=== PATIENT | male | born 1990 | race Caucasian/White ===

== ENCOUNTER 2024-04-26 19:55 | Inpatient (IN) | payer OTHER ==
[~2024-04-26] VITALS: Ht 165.1 cm; Wt 65.8 kg
[2024-04-26 20:19] VITALS: BP 146/90; PULSE 98; RESP 18; TEMP 98.3; O2SAT 99
[2024-04-26 21:40] VITALS: O2SAT 97
[2024-04-26 23:04] LABS: BASOPHILS # (AUTO) 0.1 K/uL (0.00-0.22); BASOPHILS % (AUTO) 1.1 % (0.0-2.0); EOSINOPHILS # (AUTO) 0.1 K/uL (0-0.4); EOSINOPHILS % (AUTO) 1.9 % (0.0-4.0); HEMATOCRIT 37.4 % (36-52); HEMOGLOBIN 12.4 g/dL (12.0-18.0); LYMPHOCYTES # (AUTO) 1.8 K/uL (2.0-11.5); LYMPHOCYTES % (AUTO) 26.7 % (20.5-51.1); MEAN CORPUSCULAR HEMOGLOBIN 29 pg (27-31); MEAN CORPUSCULAR HGB CONC 33 g/dL (33-37); MEAN CORPUSCULAR VOLUME 87.3 fL (80-94); MONOCYTES # (AUTO) 0.6 K/uL (0.8-1.0); MONOCYTES % (AUTO) 9.3 % (1.7-9.3); NEUTROPHILS # (AUTO) 4.1 K/uL (1.8-7.7); PLATELET COUNT (AUTO) 350 K/uL (140-450); RED BLOOD CELL COUNT(AUTO) 4.29 MIL/uL (4.20-6.10); RED CELL DISTRIBUTION WIDTH 13.7 % (11.6-13.7); WHITE BLOOD COUNT (AUTO) 6.8 K/uL (4.8-10.8)
[2024-04-26 23:10] VITALS: O2SAT 97
[2024-04-26] MEDS ORDERED: PIPERACILLIN/TAZOBACTAM 3.375 GM VIAL IV ONE (23:21)
[2024-04-26] MEDS: NACL 0.9% 1,000 ML IV ONE (23:22)
[2024-04-26 23:25] LABS: LACTIC ACID 0.8 mmol/L (0.4-2.0)
[2024-04-26] MEDS: PIPERACILLIN/TAZOBACTAM 3.375 GM in DEXTROSE 5% 50 ML IV ONE (23:28)
[2024-04-26 23:31] LABS: ANION GAP 12.4 (8-16); CALCIUM 8.9 mg/dL (8.5-10.1); CREATININE 0.8 mg/dL (0.6-1.3); POTASSIUM 3.4 mmol/L (3.5-5.1)
[2024-04-26 23:33] LABS: ALBUMIN 3.2 g/dL (3.4-5.0); BILIRUBIN,DIRECT 0.1 mg/dL (0.0-0.3); TOTAL BILIRUBIN 0.2 mg/dL (0.0-1.0); TOTAL PROTEIN, SERUM 7.6 g/dL (6.4-8.2)
[2024-04-27 01:53] VITALS: O2SAT 97
[2024-04-27] MEDS ORDERED: ONDANSETRON 4 MG/2 ML VIAL IVP PRN (02:05)
[2024-04-27] MEDS ORDERED: MAG SULF 2000 MG/WATER PREMIX 50 ML IV PRN (02:05)
[2024-04-27] MEDS ORDERED: KCL 20 MEQ IN 100 mL PREMIX 200 ML IV PRN (02:05)
[2024-04-27] MEDS ORDERED: VANCOMYCIN PER PHARMACY MC PRN (02:05)
[2024-04-27] MEDS ORDERED: MORPHINE SULFATE 4 MG/ML SYR IVP PRN (02:05)
[2024-04-27] MEDS ORDERED: VANCOMYCIN 1,000 MG VIAL ONE ×2 (02:58→03:02)
[2024-04-27] MEDS: VANCOMYCIN 1GM/DEXT 5% PREMIX 200 ML IV ONE (04:30)
[2024-04-27] MEDS: VANCOMYCIN 1,000 MG VIAL ONE (04:45)
[2024-04-27 07:38] VITALS: PULSE 69; RESP 18; O2SAT 94
[2024-04-27 07:58] VITALS: RESP 18
[2024-04-27 08:00] VITALS: BP 119/72; PULSE 66; RESP 18; TEMP 97.6; O2SAT 99
[2024-04-27] MEDS: MEDS-TO-BEDS MC SCH (09:00)
[2024-04-27] MEDS: POTASSIUM CHLORIDE 10 MEQ TABER PO PRN (10:09)
[2024-04-27] MEDS: VANCOMYCIN 1,000 MG in DEXTROSE 5% 250 ML IV SCH (12:04)
[2024-04-27 16:00] VITALS: BP 133/93; PULSE 96; RESP 18; TEMP 98; O2SAT 100
[2024-04-27 20:00] VITALS: BP 129/72; PULSE 84; PULSE 96; RESP 18; TEMP 97.9; O2SAT 100; O2SAT 95
[2024-04-28 04:00] VITALS: BP 114/73; PULSE 68; RESP 18; TEMP 98.1; O2SAT 98
[2024-04-28 06:44] LABS: BASOPHILS % (AUTO) 0.5 % (0.0-2.0); EOSINOPHILS # (AUTO) 0.1 K/uL (0-0.4); EOSINOPHILS % (AUTO) 3.1 % (0.0-4.0); HEMOGLOBIN 13.4 g/dL (12.0-18.0); LYMPHOCYTES # (AUTO) 1.6 K/uL (2.0-11.5); LYMPHOCYTES % (AUTO) 35.4 % (20.5-51.1); MEAN CORPUSCULAR HEMOGLOBIN 29 pg (27-31); MEAN CORPUSCULAR HGB CONC 33 g/dL (33-37); MEAN CORPUSCULAR VOLUME 88.5 fL (80-94); MONOCYTES # (AUTO) 0.5 K/uL (0.8-1.0); MONOCYTES % (AUTO) 11.4 % (1.7-9.3); NEUTROPHILS # (AUTO) 2.2 K/uL (1.8-7.7); NEUTROPHILS % (AUTO) 49.6 % (42.2-75.2); PLATELET COUNT (AUTO) 330 K/uL (140-450); RED BLOOD CELL COUNT(AUTO) 4.64 MIL/uL (4.20-6.10); RED CELL DISTRIBUTION WIDTH 13.7 % (11.6-13.7); WHITE BLOOD COUNT (AUTO) 4.4 K/uL (4.8-10.8)
[2024-04-28 07:02] LABS: MAGNESIUM 1.7 mg/dL (1.8-2.4); PHOSPHORUS 4.4 mg/dL (2.5-4.9)
[2024-04-28 07:09] LABS: ANION GAP 11.5 (8-16); CALCIUM 8.5 mg/dL (8.5-10.1); CARBON DIOXIDE 26.5 mmol/L (21-32); CREATININE 0.7 mg/dL (0.6-1.3)
[2024-04-28 08:00] VITALS: BP 106/72; PULSE 89; RESP 18; TEMP 98.6; O2SAT 97
[2024-04-28 12:00] VITALS: BP 111/77; PULSE 86; RESP 19; TEMP 98.2; O2SAT 99
[2024-04-28] MEDS: VANCOMYCIN 1.25GM PREMIX 250 ML IV SCH (13:20)
[2024-04-28 16:00] VITALS: BP 119/70; PULSE 102; RESP 18; TEMP 97.2; O2SAT 97
[2024-04-28 20:00] VITALS: BP 106/72; PULSE 100; PULSE 73; RESP 18; TEMP 98.8; O2SAT 95; O2SAT 97
[2024-04-29 04:00] VITALS: BP 121/74; PULSE 62; RESP 18; TEMP 97.8; O2SAT 95
[2024-04-29 06:28] LABS: BASOPHILS % (AUTO) 0.6 % (0.0-2.0); EOSINOPHILS # (AUTO) 0.1 K/uL (0-0.4); EOSINOPHILS % (AUTO) 2.3 % (0.0-4.0); HEMATOCRIT 39.5 % (36-52); LYMPHOCYTES % (AUTO) 36.6 % (20.5-51.1); MEAN CORPUSCULAR HEMOGLOBIN 29 pg (27-31); MEAN CORPUSCULAR HGB CONC 33 g/dL (33-37); MEAN CORPUSCULAR VOLUME 88.4 fL (80-94); MONOCYTES # (AUTO) 0.4 K/uL (0.8-1.0); MONOCYTES % (AUTO) 7.3 % (1.7-9.3); NEUTROPHILS # (AUTO) 2.9 K/uL (1.8-7.7); NEUTROPHILS % (AUTO) 53.2 % (42.2-75.2); PLATELET COUNT (AUTO) 327 K/uL (140-450); RED BLOOD CELL COUNT(AUTO) 4.47 MIL/uL (4.20-6.10); WHITE BLOOD COUNT (AUTO) 5.5 K/uL (4.8-10.8)
[2024-04-29 07:08] LABS: MAGNESIUM 2.1 mg/dL (1.8-2.4); PHOSPHORUS 4.2 mg/dL (2.5-4.9)
[2024-04-29 07:12] LABS: ANION GAP 14.6 (8-16); CALCIUM 8.5 mg/dL (8.5-10.1); CARBON DIOXIDE 23.5 mmol/L (21-32); CREATININE 0.8 mg/dL (0.6-1.3); POTASSIUM 4.1 mmol/L (3.5-5.1)
[2024-04-29 08:00] VITALS: BP 114/73; PULSE 100; PULSE 63; RESP 18; TEMP 96.6; O2SAT 96
[2024-04-29 12:00] VITALS: BP 119/72; PULSE 83; RESP 19; TEMP 97.3; O2SAT 97
[2024-04-29] MEDS: ACETAMINOPHEN 325 MG TAB PO PRN (12:58)
[2024-04-29 16:00] VITALS: BP 103/63; PULSE 97; RESP 18; TEMP 98.7; O2SAT 97
[2024-04-29 20:00] VITALS: BP 93/73; PULSE 94; RESP 18; TEMP 98.5; O2SAT 96
[2024-04-30 04:00] VITALS: BP 102/66; PULSE 94; RESP 18; TEMP 97.7; O2SAT 94
[2024-04-30 05:38] LABS: BASOPHILS # (AUTO) 0.1 K/uL (0.00-0.22); BASOPHILS % (AUTO) 0.8 % (0.0-2.0); EOSINOPHILS # (AUTO) 0.1 K/uL (0-0.4); EOSINOPHILS % (AUTO) 1.9 % (0.0-4.0); HEMATOCRIT 38.3 % (36-52); HEMOGLOBIN 12.5 g/dL (12.0-18.0); LYMPHOCYTES # (AUTO) 2.3 K/uL (2.0-11.5); LYMPHOCYTES % (AUTO) 33.8 % (20.5-51.1); MEAN CORPUSCULAR HEMOGLOBIN 29 pg (27-31); MEAN CORPUSCULAR HGB CONC 33 g/dL (33-37); MEAN CORPUSCULAR VOLUME 88.9 fL (80-94); MONOCYTES # (AUTO) 0.6 K/uL (0.8-1.0); MONOCYTES % (AUTO) 9.2 % (1.7-9.3); NEUTROPHILS # (AUTO) 3.7 K/uL (1.8-7.7); NEUTROPHILS % (AUTO) 54.3 % (42.2-75.2); PLATELET COUNT (AUTO) 326 K/uL (140-450); RED BLOOD CELL COUNT(AUTO) 4.32 MIL/uL (4.20-6.10); RED CELL DISTRIBUTION WIDTH 14.4 % (11.6-13.7); WHITE BLOOD COUNT (AUTO) 6.9 K/uL (4.8-10.8)
[2024-04-30 05:46] LABS: ANION GAP 10.1 (8-16); CALCIUM 8.3 mg/dL (8.5-10.1); CARBON DIOXIDE 28.7 mmol/L (21-32); CREATININE 0.7 mg/dL (0.6-1.3); POTASSIUM 3.8 mmol/L (3.5-5.1)
[2024-04-30 06:13] LABS: MAGNESIUM 1.7 mg/dL (1.8-2.4); PHOSPHORUS 4.2 mg/dL (2.5-4.9)
[2024-04-30 08:00] VITALS: BP 102/66; PULSE 94; RESP 18; TEMP 97.7; O2SAT 94; O2SAT 96
[2024-04-30 12:00] VITALS: BP 109/56; PULSE 85; RESP 18; TEMP 99; O2SAT 98
[2024-04-30 16:00] VITALS: BP 102/66; PULSE 94; RESP 18; TEMP 97.7; O2SAT 94
[2024-04-30 20:00] VITALS: BP 102/56; PULSE 77; RESP 18; TEMP 98.3; O2SAT 96; O2SAT 97
[2024-05-01 04:00] VITALS: BP 100/65; PULSE 63; RESP 18; TEMP 97.7; O2SAT 97
[2024-05-01 07:19] LABS: MAGNESIUM 1.6 mg/dL (1.8-2.4); PHOSPHORUS 4.6 mg/dL (2.5-4.9)
[2024-05-01 07:23] LABS: BASOPHILS % (AUTO) 0.4 % (0.0-2.0); EOSINOPHILS # (AUTO) 0.1 K/uL (0-0.4); EOSINOPHILS % (AUTO) 2.1 % (0.0-4.0); HEMOGLOBIN 12.6 g/dL (12.0-18.0); LYMPHOCYTES # (AUTO) 1.7 K/uL (2.0-11.5); LYMPHOCYTES % (AUTO) 26.6 % (20.5-51.1); MEAN CORPUSCULAR HEMOGLOBIN 29 pg (27-31); MEAN CORPUSCULAR HGB CONC 32 g/dL (33-37); MEAN CORPUSCULAR VOLUME 89.3 fL (80-94); MONOCYTES # (AUTO) 0.7 K/uL (0.8-1.0); MONOCYTES % (AUTO) 11.3 % (1.7-9.3); NEUTROPHILS # (AUTO) 3.8 K/uL (1.8-7.7); NEUTROPHILS % (AUTO) 59.6 % (42.2-75.2); PLATELET COUNT (AUTO) 312 K/uL (140-450); RED BLOOD CELL COUNT(AUTO) 4.37 MIL/uL (4.20-6.10); WHITE BLOOD COUNT (AUTO) 6.4 K/uL (4.8-10.8)
[2024-05-01 07:26] LABS: ANION GAP 10.9 (8-16); CALCIUM 8.5 mg/dL (8.5-10.1); CARBON DIOXIDE 27.7 mmol/L (21-32); CREATININE 0.8 mg/dL (0.6-1.3); POTASSIUM 3.6 mmol/L (3.5-5.1)
[2024-05-01 08:00] VITALS: BP 100/65; PULSE 61; PULSE 63; RESP 18; TEMP 97.7; O2SAT 100; O2SAT 97
[2024-05-01] MEDS: MAGNESIUM OXIDE 400 MG TAB PO PRN (08:22)
[2024-05-01 12:00] VITALS: BP 99/59; PULSE 61; RESP 18; TEMP 98.6; O2SAT 100
[2024-05-01 16:00] VITALS: BP 100/65; PULSE 63; RESP 18; TEMP 97.7; O2SAT 97
[2024-05-01] MEDS ORDERED: ROC1PM IV (19:50)
[2024-05-01] MEDS ORDERED: VANC1.2529 IV (19:50)
[2024-05-01 20:00] VITALS: BP 107/59; PULSE 84; RESP 18; TEMP 98.2; O2SAT 97
[2024-05-02 04:00] VITALS: BP 96/65; PULSE 58; RESP 18; TEMP 97.6; O2SAT 98
[2024-05-02 04:07] LABS: BASOPHILS # (AUTO) 0.1 K/uL (0.00-0.22); BASOPHILS % (AUTO) 1.1 % (0.0-2.0); EOSINOPHILS # (AUTO) 0.2 K/uL (0-0.4); EOSINOPHILS % (AUTO) 2.2 % (0.0-4.0); HEMATOCRIT 38.8 % (36-52); HEMOGLOBIN 12.7 g/dL (12.0-18.0); LYMPHOCYTES # (AUTO) 1.9 K/uL (2.0-11.5); LYMPHOCYTES % (AUTO) 27.2 % (20.5-51.1); MEAN CORPUSCULAR HEMOGLOBIN 29 pg (27-31); MEAN CORPUSCULAR HGB CONC 33 g/dL (33-37); MEAN CORPUSCULAR VOLUME 89.2 fL (80-94); MONOCYTES # (AUTO) 0.8 K/uL (0.8-1.0); MONOCYTES % (AUTO) 10.9 % (1.7-9.3); NEUTROPHILS # (AUTO) 4.2 K/uL (1.8-7.7); NEUTROPHILS % (AUTO) 58.6 % (42.2-75.2); PLATELET COUNT (AUTO) 317 K/uL (140-450); RED BLOOD CELL COUNT(AUTO) 4.35 MIL/uL (4.20-6.10); RED CELL DISTRIBUTION WIDTH 14.2 % (11.6-13.7); WHITE BLOOD COUNT (AUTO) 7.1 K/uL (4.8-10.8)
[2024-05-02 04:20] LABS: MAGNESIUM 1.9 mg/dL (1.8-2.4); PHOSPHORUS 5.5 mg/dL (2.5-4.9)
[2024-05-02] MEDS ORDERED: VANCOMYCIN PER PHARMACY MC PRN (04:35)
[2024-05-02] MEDS ORDERED: VANCOMYCIN 1,000 MG in DEXTROSE 5% 250 ML IV SCH (07:10)
[2024-05-02 07:56] LABS: ANION GAP 12.9 (8-16); CALCIUM 9.1 mg/dL (8.5-10.1); CARBON DIOXIDE 28.4 mmol/L (21-32); POTASSIUM 4.3 mmol/L (3.5-5.1)
[2024-05-02 08:00] VITALS: PULSE 63; RESP 18; O2SAT 98
[2024-05-02] MEDS: HYDROcodone/APAP 5/325 MG 1 TAB TAB PO PRN (09:52)
[2024-05-02 10:05] VITALS: BP 101/54; PULSE 62; RESP 18; TEMP 97.1; O2SAT 98
[2024-05-02] MEDS: VANCOMYCIN 1,000 MG in DEXTROSE 5% 250 ML IV SCH (13:48)
[2024-05-02 16:00] VITALS: BP 95/48; PULSE 58; RESP 18; TEMP 98.6; O2SAT 99
[2024-05-02 20:00] VITALS: BP 106/68; PULSE 85; RESP 18; TEMP 97.3; O2SAT 97; O2SAT 98
[2024-05-03 04:00] VITALS: BP 92/54; PULSE 77; RESP 18; TEMP 97.4; O2SAT 99
[2024-05-03 08:00] VITALS: BP 130/79; PULSE 74; PULSE 78; RESP 18; TEMP 97.6; O2SAT 96; O2SAT 98
== END 2024-05-03 18:50 | disposition home health service (06) | DRG 344 ==
LOC: EDBD 19:55 → MED 19:55 → MTU 04-27 02:03
PROVIDERS: ADMIT Internal Medicine; ATTEND Internal Medicine
PROC: 02HV33Z Insertion of Infusion Device into Superior Vena Cava, Percutaneous Approach (ICD-10-PCS; principal; 2024-05-01)
DX: M86.8X7 Other osteomyelitis, ankle and foot (principal); E44.0 Moderate protein-calorie malnutrition; E11.621 Type 2 diabetes mellitus with foot ulcer; E11.51 Type 2 diabetes mellitus with diabetic peripheral angiopathy without gangrene; L03.032 Cellulitis of left toe; L97.528 Non-pressure chronic ulcer of other part of left foot with other specified severity; E11.69 Type 2 diabetes mellitus with other specified complication; R74.01 Elevation of levels of liver transaminase levels; Z89.511 Acquired absence of right leg below knee; Z68.24 Body mass index [BMI] 24.0-24.9, adult; Z79.899 Other long term (current) drug therapy
CPT/HCPCS: 36415; 71045; 73630; 73660; 80048; 80076; 80202; 82948; 83036; 83605; 83735; 84100; 85025; 87040; 87081; 96361; 96365; 99285; J0696; J1644; J2543; J3370; J3372; J7060; Q0092